=== PATIENT | male | born 1980 | race Caucasian/White ===

== ENCOUNTER 2021-02-08 18:46 | Inpatient (IN) | payer OTHER ==
[2021-02-08 20:29] VITALS: BMI 31.5
[2021-02-08] MEDS ORDERED: MAGNESIUM CITRATE 300 ML BOTTLE PO PRN (21:09)
[2021-02-08] MEDS ORDERED: ACETAMINOPHEN 325 MG TABLET (FP) PO PRN ×2 (21:09)
[2021-02-08] MEDS ORDERED: P-EPHED 60MG/TRIPROLIDI 2.5MG TABLET PO PRN (21:09)
[2021-02-08] MEDS ORDERED: MAGNESIUM HYDROX 2400MG/30ML ORAL SUSPENSION 30 ML CUP PO PRN (21:09)
[2021-02-08] MEDS ORDERED: METHOCARBAMOL 500 MG TABLET PO PRN (21:09)
[2021-02-08] MEDS ORDERED: IBUPROFEN 400 MG TABLET (FP) PO PRN (21:09)
[2021-02-08] MEDS ORDERED: NALOXONE HCL 0.4 MG/ML VIAL IM PRN (21:09)
[2021-02-08] MEDS ORDERED: BISMUTH SUBSALICYLATE 524 MG/30 ML PO PRN (21:09)
[2021-02-08] MEDS ORDERED: MAG HYDROX/AL HYDROX/SIMETH 30 ML UNIT-DOSE CUP PO PRN (21:09)
[2021-02-08] MEDS ORDERED: guaiFENesin 200 MG/10 ML 10 ML UNIT-DOSE CUPS PO PRN (21:09)
[2021-02-08] MEDS ORDERED: ONDANSETRON *ODT* 4 MG TABLET SL PRN (21:09)
[2021-02-08] MEDS ORDERED: MENTHOL/PHENOL 1 EACH UD MM PRN (21:09)
[2021-02-08] MEDS ORDERED: DICYCLOMINE HCL 10 MG CAPSULE PO PRN (21:09)
[2021-02-08] MEDS ORDERED: hydrOXYzine PAMOATE 25 MG CAPSULE (FP) PO PRN (21:09)
[2021-02-08] MEDS ORDERED: NICOTINE 10 MG CARTRIDGE (INHALER) IH PRN (21:09)
[2021-02-08] MEDS ORDERED: NALOXONE (NARCAN) HCL 4 MG/0.1 ML SPRAY NS PRN (21:09)
[2021-02-09] MEDS: MELATONIN 5 MG TABLETS PO SCH ×2 (00:41→22:04)
[2021-02-09] MEDS: THIAMINE HCL 100 MG TABLET (FP) PO SCH ×2 (00:41→22:03)
[2021-02-09] MEDS: PRENATAL VITAMINS W/ FOLIC ACID TABLET (FP) PO SCH (10:25)
[2021-02-09] MEDS: NICOTINE 14 MG/24 HOURS TOPICAL PATCH TD SCH (10:26)
[2021-02-09] MEDS: BUPRENORPHINE/NALOXONE 8 MG/2 MG FILM PACKET SL SCH ×2 (10:26→22:03)
[2021-02-09] MEDS: diazePAM 5 MG TABLET PO SCH ×3 (12:57→22:02)
[2021-02-10] MEDS: diazePAM 5 MG TABLET PO SCH ×3 (06:32→22:06)
[2021-02-10] MEDS: PRENATAL VITAMINS W/ FOLIC ACID TABLET (FP) PO SCH (10:14)
[2021-02-10] MEDS: NICOTINE 14 MG/24 HOURS TOPICAL PATCH TD SCH (10:14)
[2021-02-10] MEDS: diazePAM 5 MG TABLET PO PRN (10:14)
[2021-02-10] MEDS: BUPRENORPHINE/NALOXONE 8 MG/2 MG FILM PACKET SL SCH ×2 (10:15→22:05)
[2021-02-10 14:50] LABS: HEMATOCRIT 42.8 % (35.4-49); HEMOGLOBIN 15.1 GM/dL (11.7-16.9); MCH 31.4 pg (25.7-33.7); MCHC 35.3 g/dl (32.0-35.9); MEAN CELL VOLUME 88.7 fl (80-96); MEAN PLT VOLUME 8.6 fl (7.5-11.1); PLATELET COUNT 236 10^3/uL (134-434); RBC 4.82 M/mm3 (4.00-5.60); WHITE BLOOD COUNT 5.3 K/mm3 (4.0-10.0)
[2021-02-10 15:01] LABS: CALCIUM 8.9 mg/dL (8.5-10.1)
[2021-02-10 15:02] LABS: ALBUMIN 3.4 g/dl (3.4-5.0); BLOOD UREA NITROGEN 7.6 mg/dL (7-18)
[2021-02-10 15:05] LABS: CREATININE 0.9 mg/dL (0.55-1.3)
[2021-02-10 15:07] LABS: BILIRUBIN,TOTAL 0.5 mg/dL (0.2-1); TOT PROT 6.5 g/dl (6.4-8.2)
[2021-02-10] MEDS: MELATONIN 5 MG TABLETS PO SCH (22:07)
[2021-02-10] MEDS: THIAMINE HCL 100 MG TABLET (FP) PO SCH (22:07)
[2021-02-11] MEDS: diazePAM 5 MG TABLET PO SCH ×2 (06:14→18:20)
[2021-02-11] MEDS: NICOTINE 14 MG/24 HOURS TOPICAL PATCH TD SCH (10:18)
[2021-02-11] MEDS: BUPRENORPHINE/NALOXONE 8 MG/2 MG FILM PACKET SL SCH ×2 (10:20→22:16)
[2021-02-11] MEDS: PRENATAL VITAMINS W/ FOLIC ACID TABLET (FP) PO SCH (10:20)
[2021-02-11] MEDS: diazePAM 5 MG TABLET PO PRN ×2 (14:34→22:17)
[2021-02-11] MEDS: MELATONIN 5 MG TABLETS PO SCH (22:16)
[2021-02-11] MEDS: THIAMINE HCL 100 MG TABLET (FP) PO SCH (22:16)
[2021-02-12] MEDS ORDERED: diazePAM 5 MG TABLET PO ONE (06:00)
[2021-02-12 07:00] VITALS: BP 97/61; PULSE 52; TEMP 97.3
[2021-02-12] MEDS: BUPRENORPHINE/NALOXONE 8 MG/2 MG FILM PACKET SL SCH (09:40)
[2021-02-12] MEDS: PRENATAL VITAMINS W/ FOLIC ACID TABLET (FP) PO SCH (09:42)
[2021-02-12] MEDS: NICOTINE 14 MG/24 HOURS TOPICAL PATCH TD SCH (11:34)
== END 2021-02-12 14:05 | disposition other institution (70) | DRG 897 ==
LOC: YASAS 18:46 → Y3N 22:05
PROVIDERS: ADMIT Allergy & Immunology; ATTEND Allergy & Immunology
PROC: HZ2ZZZZ Detoxification Services for Substance Abuse Treatment (ICD-10-PCS; principal; 2021-02-08)
DX: F10.230 Alcohol dependence with withdrawal, uncomplicated (principal); F11.20 Opioid dependence, uncomplicated; F14.20 Cocaine dependence, uncomplicated; F12.20 Cannabis dependence, uncomplicated; F17.210 Nicotine dependence, cigarettes, uncomplicated; F19.24 Other psychoactive substance dependence with psychoactive substance-induced mood disorder; G43.909 Migraine, unspecified, not intractable, without status migrainosus; K21.9 Gastro-esophageal reflux disease without esophagitis; K58.9 Irritable bowel syndrome, unspecified; Z86.59 Personal history of other mental and behavioral disorders; Z88.8 Allergy status to other drugs, medicaments and biological substances
CPT/HCPCS: 36415; 80053; 85027; 86780; 93005; 93010; C9803; U0003; U0005

== ENCOUNTER 2021-02-12 14:34 | Inpatient (IN) | payer OTHER ==
[~2021-02-12 14:34] MED LIST: ACETAMINOPHEN 325 MG TABLET (FP) PO PRN; IBUPROFEN 400 MG TABLET (FP) PO PRN; LOPERAMIDE HCL 2 MG CAPSULE PO PRN; MAG HYDROX/AL HYDROX/SIMETH 30 ML UNIT-DOSE CUP PO PRN; MAGNESIUM CITRATE 300 ML BOTTLE PO PRN; MAGNESIUM HYDROX 2400MG/30ML ORAL SUSPENSION 30 ML CUP PO PRN; MENTHOL/PHENOL 1 EACH UD MM PRN; NICOTINE 10 MG CARTRIDGE (INHALER) IH PRN; guaiFENesin 200 MG/10 ML 10 ML UNIT-DOSE CUPS PO PRN
[2021-02-12 14:53] VITALS: BP 110/73; PULSE 51; TEMP 97.3
[2021-02-12] MEDS ORDERED: BUPRENORPHINE/NALOXONE 8 MG/2 MG FILM PACKET SL SCH ×2 (22:00)
[2021-02-12] MEDS ORDERED: MELATONIN 5 MG TABLETS PO SCH (22:00)
[2021-02-12] MEDS ORDERED: THIAMINE HCL 100 MG TABLET (FP) PO SCH (22:00)
[2021-02-13] MEDS ORDERED: PRENATAL VITAMINS W/ FOLIC ACID TABLET (FP) PO SCH (10:00)
[2021-02-13] MEDS ORDERED: NICOTINE 14 MG/24 HOURS TOPICAL PATCH TD SCH (10:00)
== END 2021-02-12 17:25 | disposition left against medical advice (07) | DRG 894 ==
LOC: YASAS 14:34 → Y3E 14:35
PROVIDERS: ADMIT Allergy & Immunology; ATTEND Allergy & Immunology
PROC: HZ42ZZZ Group Counseling for Substance Abuse Treatment, Cognitive-Behavioral (ICD-10-PCS; principal; 2021-02-12)
DX: F10.20 Alcohol dependence, uncomplicated (principal); F11.20 Opioid dependence, uncomplicated; F14.20 Cocaine dependence, uncomplicated; F12.20 Cannabis dependence, uncomplicated